=== PATIENT | male | born 1950 | race Two or more races ===

== ENCOUNTER 2018-02-28 12:58 | Outpatient (CLI) | payer MEDICARE, BC | END 2018-02-28 23:59 | disposition home or self-care (01) | LOC: WOU 12:58 | PROVIDERS: ATTEND Podiatrist Foot & Ankle Surgery | DX: M72.2 Plantar fascial fibromatosis (principal); R60.0 Localized edema; M20.42 Other hammer toe(s) (acquired), left foot; B35.1 Tinea unguium; M21.40 Flat foot [pes planus] (acquired), unspecified foot; Z91.012 Allergy to eggs; Z80.1 Family history of malignant neoplasm of trachea, bronchus and lung | CPT/HCPCS: 87102-TC; A6402; G0463; Z7610 ==

== ENCOUNTER 2018-03-07 10:24 | Outpatient (CLI) | payer MEDICARE, BC | END 2018-03-07 23:59 | disposition home or self-care (01) | LOC: WOU 10:24 | PROVIDERS: ATTEND Podiatrist Foot & Ankle Surgery | DX: L60.0 Ingrowing nail (principal); M20.42 Other hammer toe(s) (acquired), left foot; M20.41 Other hammer toe(s) (acquired), right foot; R60.0 Localized edema | CPT/HCPCS: G0463; Z7610 ==

== ENCOUNTER 2018-03-13 11:02 | Outpatient (CLI) | payer MEDICARE, BC ==
[2018-03-13] MEDS ORDERED: ETHYL CHLORIDE SPRAY 1 EA BOTTLE TP ONE (12:00)
== END 2018-03-13 23:59 | disposition home or self-care (01) ==
LOC: WOU 11:02
PROVIDERS: ATTEND Podiatrist Foot & Ankle Surgery
DX: L60.0 Ingrowing nail (principal); M79.672 Pain in left foot; M79.671 Pain in right foot
CPT/HCPCS: 11730; 11732; A6402 ×2; J3490; Z7610

== ENCOUNTER 2018-03-20 10:40 | Outpatient (CLI) | payer MEDICARE, BC | END 2018-03-20 23:59 | disposition home or self-care (01) | LOC: WOU 10:40 | PROVIDERS: ATTEND Podiatrist Foot & Ankle Surgery | DX: Z09 Encounter for follow-up examination after completed treatment for conditions other than malignant neoplasm (principal); B35.1 Tinea unguium; M20.40 Other hammer toe(s) (acquired), unspecified foot; M79.672 Pain in left foot; M79.671 Pain in right foot; Z98.890 Other specified postprocedural states | CPT/HCPCS: G0463; Z7610; A6402 ==